=== PATIENT | female | born 1940 | race Caucasian/White ===

== ENCOUNTER 2020-11-28 17:46 | Emergency (ER) | payer MEDICARE, MEDICAID ==
[~2020-11-28] VITALS: Ht 165.1 cm; Wt 59.0 kg
[2020-11-28] MEDS ORDERED: NORVASC5 MG PO (17:58)
[2020-11-28] MEDS ORDERED: MAPAP500 MG PO (17:59)
[2020-11-28] MEDS ORDERED: MEMANTINE HCL10 MG PO (17:59)
[2020-11-28] MEDS ORDERED: SUPER THERAVIT1 EACH PO (18:00)
[2020-11-28] MEDS ORDERED: BENICAR40 MG PO (18:00)
[2020-11-28] MEDS ORDERED: DESYREL150 MG PO (18:00)
[2020-11-28 19:13] LABS: ABSOLUTE LYMPHOCYTES 0.6 thou/uL (0.8-5.3); ABSOLUTE MONOCYTES 0.7 thou/uL (0.0-1.2); ABSOLUTE NEUTROPHILS 4.3 thou/uL (1.6-8.1); BASOPHILS 0.6 %; EOSINOPHILS 0.9 %; HEMATOCRIT 36.2 % (37.0-47.0); HEMOGLOBIN 12.2 gm/dL (12.0-15.0); LYMPHOCYTES 10.2 %; MCH 30.9 pg (26.0-34.0); MCHC 33.6 g/dL (28.0-37.0); MCV 91.9 fL (80.0-100.0); MONOCYTES 12.4 %; MPV 7.2 fl. (7.2-11.1); NUCLEATED RBCS 0 /100WBC; PLATELET COUNT* 246 thou/uL (150-400); POLYS 75.9 %; RBC 3.93 mil/uL (4.20-5.00); RDW-CV 13.4 % (10.5-14.5); WBC 5.6 thou/uL (4.0-11.0)
[2020-11-28 19:25] LABS: CALCIUM 9.1 mg/dL (8.5-10.1); CREATININE 1.6 mg/dL (0.6-1.3); POTASSIUM 4.7 mmol/L (3.5-5.1)
[2020-11-28 19:30] LABS: ALBUMIN 3.5 g/dL (3.4-5.0); TOTAL BILIRUBIN 0.2 mg/dL (<0.1-1.0); TOTAL PROTEIN 7.4 g/dL (6.4-8.2)
[2020-11-28 21:46] LABS: URINE BILIRUBIN NEGATIVE (Negative); URINE BLOOD 1+ (Negative); URINE CLARITY CLEAR; URINE COLOR YELLOW; URINE GLUCOSE-RANDOM NEGATIVE (Negative); URINE KETONES NEGATIVE (Negative); URINE LEUKOCYTES TRACE (Negative); URINE NITRITE NEGATIVE (Negative); URINE PROTEIN NEGATIVE (Negative); URINE UROBILINOGEN 0.2 E.U./dl (0.2-1.0)
[2020-11-28 21:53] LABS: CASTS None Seen /LPF (None Seen); CRYSTALS None Seen /LPF (None Seen); MUCUS None Seen strn/LPF (None Seen); SQUAMOUS 0-3 Few /LPF (0-3)
[2020-11-28 21:54] LABS: BACTERIA 1-9 Few /HPF (None Seen); URINE WBC 0-5 Rare /HPF (0-5)
[2020-11-28 21:55] LABS: URINE RBC 0-2 Rare /HPF (0-2)
[2020-11-28] MEDS ORDERED: MACROBID 100 M100 M1 PO (22:34)
[2020-11-28 22:43] VITALS: BP 140/88
--- NOTE | 2020-11-29 11:10 | EKG ---
[place] [address] ELECTROCARDIOGRAM REPORT Name: Dianelys VASQUES Room: [facility]#: [id number] Admission: 11/28/20 Attend Phys: Discharge: 11/28/20 Date of : 40 Date of Service: 11/28/20 175 Report #: [id number] THIS REPORT FOR: //name// [facility] ED Test Date: 2020-11-28 Test Time: 17:52:13 Pat Name: Dianelys VASQUES Department: Room: Gender: F Weaver Hand Loom: : 1940 Requested By: Shaun Owens Order Number: [id number] MD: Frantz Campoverde Measurements Intervals [place] Rate: 70 P: 59 NE: 151 QRS: -28 QRSD: 78 T: 49 QT: 411 QTc: 444 Interpretive Statements Sinus rhythm Probable left atrial enlargement Borderline left axis deviation No previous ECG available for comparison Electronically Signed On 11-29-2020 11:09:55 CDT by Frantz Campoverde [email or web address] <ELECTRONICALLY SIGNED> By: Frantz Campoverde MD, [facility] 11/29/20 1109 51 51 Frantz Campoverde MD, FAC /EPI
== END 2020-11-28 22:48 | disposition home or self-care (01) ==
LOC: M.ERS 17:46
PROVIDERS: Emergency Medicine
DX: N39.0 Urinary tract infection, site not specified (principal); R55 Syncope and collapse; F03.90 Unspecified dementia, unspecified severity, without behavioral disturbance, psychotic disturbance, mood disturbance, and anxiety; E86.0 Dehydration; R42 Dizziness and giddiness; Z79.899 Other long term (current) drug therapy

== ENCOUNTER 2021-01-15 21:40 | Emergency (ER) | payer MEDICARE ==
[~2021-01-15] VITALS: Ht 157.5 cm; Wt 54.0 kg
[~2021-01-15 21:40] MED LIST: BENICAR40 MG PO; DESYREL150 MG PO; MACROBID 100 M100 M1 PO; MAPAP500 MG PO; MEMANTINE HCL10 MG PO; NORVASC5 MG PO; SUPER THERAVIT1 EACH PO
[2021-01-15 22:30] LABS: CALCIUM 9.5 mg/dL (8.5-10.1); CREATININE 1.2 mg/dL (0.6-1.3); POTASSIUM 3.8 mmol/L (3.5-5.1)
[2021-01-15 22:32] LABS: ABSOLUTE EOSINOPHILS 0.1 thou/uL (0.0-0.7); ABSOLUTE LYMPHOCYTES 1.1 thou/uL (0.8-5.3); ABSOLUTE MONOCYTES 0.7 thou/uL (0.0-1.2); ABSOLUTE NEUTROPHILS 3.6 thou/uL (1.6-8.1); BASOPHILS 0.5 %; EOSINOPHILS 1.4 %; HEMATOCRIT 33.9 % (37.0-47.0); HEMOGLOBIN 11.3 gm/dL (12.0-15.0); LYMPHOCYTES 19.9 %; MCH 30.5 pg (26.0-34.0); MCHC 33.3 g/dL (28.0-37.0); MCV 91.4 fL (80.0-100.0); NUCLEATED RBCS 0 /100WBC; PLATELET COUNT* 225 thou/uL (150-400); POLYS 66.2 %; RBC 3.71 mil/uL (4.20-5.00); RDW-CV 13.1 % (10.5-14.5); WBC 5.5 thou/uL (4.0-11.0)
[2021-01-15 22:35] LABS: ALBUMIN 3.3 g/dL (3.4-5.0); TOTAL BILIRUBIN 0.4 mg/dL (<0.1-1.0); TOTAL PROTEIN 6.9 g/dL (6.4-8.2)
[2021-01-16 00:17] LABS: URINE BILIRUBIN NEGATIVE (Negative); URINE BLOOD 1+ (Negative); URINE CLARITY SL CLOUDY; URINE COLOR YELLOW; URINE GLUCOSE-RANDOM NEGATIVE (Negative); URINE KETONES 1+ (Negative); URINE NITRITE-REFLEX NEGATIVE (Negative); URINE PROTEIN 1+ (Negative)
[2021-01-16 00:19] LABS: URINE LEUKOCYTES-REFLEX 3+ (Negative)
[2021-01-16] MEDS ORDERED: CEPHALEXIN500 MG PO (00:22)
[2021-01-16 00:27] LABS: MUCUS None Seen strn/LPF (None Seen); SQUAMOUS >10 Many /LPF (0-3); URINE WBC-REFLEX >25 Many /HPF (0-5); WBC CLUMPS Few (None Seen)
[2021-01-16 00:29] LABS: BACTERIA-REFLEX 1-9 Few /HPF (None Seen); CRYSTALS None Seen /LPF (None Seen); HYALINE CASTS 0-3 Few /LPF (None Seen); TRANSITIONAL EPITHEL CELL 0-3 Few /LPF (None Seen); URINE RBC 0-2 Rare /HPF (0-2)
[2021-01-16 00:53] VITALS: BP 135/93
--- NOTE | 2021-01-19 10:34 | EKG ---
[place] [address] ELECTROCARDIOGRAM REPORT Name: Dianelys VASQUES Room: [facility]#: [id number] Admission: 01/15/21 Attend Phys: Discharge: 01/16/21 Date of : 40 Date of Service: 01/15/212140 Report #: [id number] THIS REPORT FOR: //name// [facility] ED Test Date: 2021-01-15 Test Time: 21:41:03 Pat Name: Dianelys VASQUES Department: Room: Gender: Refrigerator Repair Technician: : 1940 Requested By: Naz Vidal Order Number: [id number] MD: Frantz Campoverde Measurements Intervals [place] Rate: 71 P: 56 [place]: 165 QRS: -26 QRSD: 79 T: 35 QT: 420 QTc: 457 Interpretive Statements Sinus rhythm Left atrial enlargement Borderline left axis deviation Compared to ECG 11/28/2020 17:52:13 no change Electronically Signed On 01-19-2021 10:34:39 CHILD CARE SPECIALIST by Frantz Campoverde [email or web address] <ELECTRONICALLY SIGNED> By: Frantz Campoverde MD, [facility] 01/19/21 1034 40 40 Frantz Campoverde MD, [facility] /EPI
== END 2021-01-16 00:55 | disposition home or self-care (01) ==
LOC: M.ERS 21:40
PROVIDERS: Personal Emergency Response Attendant
DX: N39.0 Urinary tract infection, site not specified (principal); Z20.822 Contact with and (suspected) exposure to COVID-19; R55 Syncope and collapse; F32.9 Major depressive disorder, single episode, unspecified; Z79.899 Other long term (current) drug therapy

== ENCOUNTER 2021-03-04 18:38 | Inpatient (IN) | payer MEDICARE, OTHER ==
[~2021-03-04] VITALS: Ht 162.6 cm; Wt 49.4 kg
[~2021-03-04 18:38] MED LIST changes: +CEPHALEXIN500 MG PO
[2021-03-04 19:32] LABS: ABSOLUTE LYMPHOCYTES 0.8 thou/uL (0.8-5.3); ABSOLUTE MONOCYTES 0.6 thou/uL (0.0-1.2); ABSOLUTE NEUTROPHILS 3.4 thou/uL (1.6-8.1); BASOPHILS 0.3 %; EOSINOPHILS 0.7 %; HEMOGLOBIN 11.4 gm/dL (12.0-15.0); LYMPHOCYTES 16.3 %; MCH 30.8 pg (26.0-34.0); MCHC 33.5 g/dL (28.0-37.0); MCV 92.1 fL (80.0-100.0); MONOCYTES 12.3 %; MPV 7.7 fl. (7.2-11.1); NUCLEATED RBCS 0 /100WBC; PLATELET COUNT* 238 thou/uL (150-400); POLYS 70.4 %; RBC 3.69 mil/uL (4.20-5.00); RDW-CV 13.5 % (10.5-14.5); WBC 4.8 thou/uL (4.0-11.0)
[2021-03-04 19:36] LABS: CALCIUM 9.2 mg/dL (8.5-10.1); CREATININE 1.2 mg/dL (0.6-1.3); POTASSIUM 4.2 mmol/L (3.5-5.1)
[2021-03-04 19:47] LABS: ALBUMIN 3.6 g/dL (3.4-5.0); TOTAL BILIRUBIN 0.5 mg/dL (<0.1-1.0); TOTAL PROTEIN 7.1 g/dL (6.4-8.2)
[2021-03-04 19:57] LABS: URINE BILIRUBIN NEGATIVE (Negative); URINE BLOOD NEGATIVE (Negative); URINE CLARITY CLEAR; URINE COLOR YELLOW; URINE GLUCOSE-RANDOM NEGATIVE (Negative); URINE KETONES TRACE (Negative); URINE LEUKOCYTES-REFLEX TRACE (Negative); URINE NITRITE-REFLEX NEGATIVE (Negative); URINE PROTEIN TRACE (Negative)
[2021-03-04 20:07] LABS: SQUAMOUS 4-10 Moderate /LPF (0-3)
[2021-03-04 20:08] LABS: BACTERIA-REFLEX 1-9 Few /HPF (None Seen); CRYSTALS None Seen /LPF (None Seen); HYALINE CASTS 0-3 Few /LPF (None Seen); URINE RBC 0-2 Rare /HPF (0-2); URINE WBC-REFLEX 0-5 Rare /HPF (0-5)
[2021-03-05 00:02] VITALS: BP 127/69
[2021-03-05 03:54] VITALS: BP 131/75
[2021-03-05 08:00] VITALS: BP 139/77
--- NOTE | 2021-03-05 09:29 | NUR ---
Pt came to the hospital on 03/04/21 with weakness, dehydration, and hyponatremia. Pt has a hx of dementia. Pt is a resident of [facility] . Called son - Leif Jorgensen at: [phone] to complete assessment. He reports pt is in the memory care unit of [facility] and has been there since November of 2020. He reports she ambulates independently and needs supervision/cueing for ADL's. Pt was ambulating independently with no assistive device. No hx of HH/SNF/or DME. Son confirms plan is to return to [facility] Memory Care Unit on discharge. CM to continue to follow for discharge planning.
--- NOTE | 2021-03-05 09:48 | EKG ---
[place] [address] ELECTROCARDIOGRAM REPORT Name: Dianelys VASQUES Room: [address] M[address]R.#: [id number] Admission: 03/04/21 Attend Phys: Tristan Russell Discharge: Date of : 40 Date of Service: 03/04/211906 Report #: [id number] THIS REPORT FOR: //name// [facility] ED Test Date: 2021-03-04 Test Time: 19:07:35 Pat Name: Dianelys VASQUES Department: Room: [facility] Gender: F Computing Services Director: : 1940 Requested By: Shoaib Whittington Order Number: [id number] MD: Charles Pathak Measurements Intervals [place] Rate: 68 P: 72 [place]: 178 QRS: -7 QRSD: 87 T: 42 QT: 426 QTc: 454 Interpretive Statements Sinus rhythm LAE, consider biatrial enlargement Possible anterolateral infarct, old Baseline wander in lead(s) I Compared to ECG 01/15/2021 21:41:03 Myocardial infarct finding now possible Electronically Signed On 03-05-2021 9:48:08 PRICE CHECKER by Charles Pathak [email or web address] <ELECTRONICALLY SIGNED> By: Charles Pathak MD, FACC 03/05/21 0948 06 06 Charles Pathak MD, FAC /EPI
[2021-03-05 12:00] VITALS: BP 140/107
[2021-03-05 18:42] VITALS: BP 140/107
[2021-03-05 20:54] VITALS: BP 135/83
[2021-03-06 00:31] VITALS: BP 132/85
[2021-03-06 04:00] VITALS: BP 151/78
[2021-03-06 08:00] VITALS: BP 88/45
--- NOTE | 2021-03-06 09:55 | NUR ---
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 SHE HAS DENIED THE NEED FOR PAIN MEDICATION UP TO 0700 TODAY.
[2021-03-06 12:39] VITALS: BP 117/70
[2021-03-06] MEDS ORDERED: VITAMIN D325 MC2 PO (13:28)
[2021-03-06] MEDS ORDERED: CEFDINIR300 MG PO (13:28)
[2021-03-06 14:16] VITALS: BP 117/70
--- NOTE | 2021-03-06 17:08 | NUR ---
PLAN FOR THE PT TO D/C TODAY BACK TO THE [facility] WITH HH. [facility] DID ON-SITE VISIT WITH THE PT AND REQUEST HH ORDERS FOR [facility] FOR THE PT. D/C AND HH ORDERS FAXED TO [facility] AND THE [facility]. CM WILL REMAIN AVAILABLE TO ASSIST AND FOLLOW NEEDED. [facility] PHONE: [phone] [facility] PHONE: [phone]
== END 2021-03-06 14:45 | disposition home health service (06) | DRG 640 ==
LOC: M.ERS 18:38 → M.TBA-ER 20:44 → M.2W 03-05 11:17 → M.TBA-ER 03-05 11:17 → M.2W 03-05 18:59
PROVIDERS: Family Medicine; ADMIT Internal Medicine; ATTEND Internal Medicine
DX: E86.0 Dehydration (principal); G93.41 Metabolic encephalopathy; N30.00 Acute cystitis without hematuria; E87.1 Hypo-osmolality and hyponatremia; F03.90 Unspecified dementia, unspecified severity, without behavioral disturbance, psychotic disturbance, mood disturbance, and anxiety; F32.9 Major depressive disorder, single episode, unspecified; Z20.822 Contact with and (suspected) exposure to COVID-19